=== PATIENT | male | born 1985 | race Two or more races ===

== ENCOUNTER → 2024-11-04 | Outpatient (CLI) | payer OTHER, SELFPAY ==
--- NOTE | 2024-11-04 | XR_ITS ---
Examination: Left knee 2 views Technique one AP lateral left knee 2 views Exam date and time: November 04, 2024 1210 hours Comparison November 14, 2022 INDICATIONS: Left knee swelling and pain beginning 2 months ago. FINDINGS: Moderate tricompartment osteoarthritis No fracture Prominent osteopenia Mild to moderate knee effusion IMPRESSION: Moderate tricompartment osteoarthritis
== END | disposition home or self-care (01) ==
LOC: CDIM 10:55
PROVIDERS: PCP Family Medicine; Referring Provider Family Medicine; Visit Provider Family Medicine
DX: M17.12 Unilateral primary osteoarthritis, left knee (principal)
CPT/HCPCS: 73560